=== PATIENT | male | born 1980 | race African-American/Black ===

== ENCOUNTER → 2016-11-24 | Outpatient (CLI) | payer OTHER ==
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
--- NOTE | ~2016-11-24 | CR170 ---
[facility] A Service of [facility] & [facility] RADIOLOGY TEXT RESULTS PATIENT: MADI SIMMONS LOCATION: [facility] : 78 UNIT #: [id number] AGE: [address]: Lyndsay Marcelo APRN SEX: M ORDER DR: [id number] [facility] [address] [place], [place] [address] [id number] O MR#: [id number] Acc #: [id number] NAME: MADI SIMMONS : 1980 SEX: M STUDY DATE/TIME: 11/24/2016 9:41 UNIT: [facility] ROOM: STUDY DESCRIPTION: CR Knee 2 Views Rt Attending Physician: Lyndsay Marcelo Aprn Referring Physician: Lyndsay Marcelo Aprn Ordering Physician: Lyndsay Marcelo Aprn Primary Care Physician: Nancy Adam M.D. MEDICAL IMAGING REPORT This report is preliminary unless electronic signature is present EXAM Right knee 2 views 11/24/2016 HISTORY Right knee pain and stiffness for 6 months with swelling. No known injury. FINDINGS AP and lateral projection of the knee shows smooth articular anatomy without indication of fracture or dislocation at the major weight-bearing surface of the knee. There is no indication of radiopaque foreign body about the knee surface or joint effusion. IMPRESSION Normal knee. Dictated by... Aleksandar Morrison M.D. THIS IS AN ELECTRONICALLY VERIFIED REPORT Aleksandar Morrison M.D. at 11/26/2016 6:17 AM KRT/pcl TD: 11/25/2016 07:50 JOB #: [id number] MEDICAL IMAGING REPORT Page 1 of 1 COPY
== END | disposition home or self-care (01) ==
LOC: CRAD 09:25
DX: M25.561 Pain in right knee (principal); M54.5 Low back pain; G89.29 Other chronic pain
CPT/HCPCS: 72100; 73560